=== PATIENT | female | born 1925 | race Caucasian/White ===

== ENCOUNTER 2017-01-12 10:45 | Day surgery (SDC) | payer MEDICARE ==
--- NOTE | 2017-01-11 11:59 | PCM.ANEPRE ---
Anesthesia Pre-Op Review Reason for Review: extensive cardiac history Anesthesia Recommendations: Proceed with Procedure Additional Comments 89 yo female with history of TAVR in 2015, a pacemaker for tachybrady sydrome following TAVR. Appears optimized per chart review. Last cardiology visit . Will need clarification of pacemaker settings and if it is only pacer or defibrillator as well. Final decision by anesthesiologist day of surgery. Chart Reviewed by: China Miller DO January 11, 2017 11:59
[~2017-01-12] VITALS: Ht 152.4 cm; Wt 59.6 kg
[~2017-01-12 10:45] MED LIST: AMLO5TAB2 PO; ASPI-973 PO; CARV3.122 PO; CHOL100045 PO; GLIP10TA10 PO; LIP40 PO; LISI-571 PO; METF850T2 PO
[2017-01-12] MEDS ORDERED: fentaNYL-PF 50 mCg/mL 2 mL Inj ONE (10:46)
[2017-01-12] MEDS ORDERED: Propofol 10,000 mCg/mL 20 mL Inj ONE (10:46)
[2017-01-12 11:14] VITALS: BP 147/69; PULSE 62; RESP 16; O2SAT 100
[2017-01-12] MEDS: Lactated Ringer's 1,000 ML IV SCH ×2 (11:16→11:54)
--- NOTE | 2017-01-12 11:17 | PCM.HPANE ---
Patient Data Date of Service: January 12, 2017 Surgeon Admitting Provider: Attending Provider:Mikel Valencia MD Primary Care Physician:Mac Zavala MD Other Provider:Vince Benoit Anesthesia Reason for Visit Left Temporal Pain Ht/WT & BMI Height (Feet): 5 Height (Inches): 0 Weight (Kilograms): 60.78 Body Mass Index 26.00 Allergies Coded Allergies: Sulfa (Sulfonamide Antibiotics) (Verified Allergy, Mild, upset stomach, ) Uncoded Allergies: No Known Allergies (Allergy, Unknown, 04/10/05) Past Anesthesia History Anesthesia History: Denies:: Anesthesia Reactions Diabetes History Hx Diabetes?: Yes Type of Diabetes: Type II Glycemic Control: Oral Medication MRSA MRSA: No Medications Hypertension Medication: Yes Home Meds Incl Beta Renita: Yes Date Beta Renita Taken: January 12, 2017 Time Beta Renita Taken: 06:00 Reported Medications Carvedilol 3.125 Mg Tablet3.125 Mg PO BID Ref 0 03/05/16 Amlodipine 5 Mg Tablet5 Mg PO DAILY Ref 0 03/05/16 Lisinopril 5 Mg Tablet5 Mg PO DAILY #30 TABLET Ref 0 03/05/16 Atorvastatin (Lipitor)40 Mg [id number] Mg PO DAILY Ref 0 03/05/16 Glipizide 10 Mg Tablet5 Mg PO BID 30 Days 08/06/15 Aspirin 81 Mg [id number] Mg PO DAILY Ref 0 08/06/15 Cholecalciferol (Vitamin D3) (Vitamin D)1,000 Unit Capsule1,000 Unit PO DAILY # 1 BOTTLE Ref 0 08/06/15 Metformin 850 Mg [id number] Mg PO TIDAC Ref 0 08/06/15 History History of ENT Problems?: Yes HEENT History: Positive for:: Cataracts (bilateral, removed) Hearing Problem Denies:: Dysphagia Sinus Problem Denture Type: None Teeth Condition: Within Normal Limits Hx of Heart Problems?: Yes Cardiovascular History: Positive for:: Congestive Heart Failure Edema (lower legs) Hypertension Irregular Heartbeat (tachy nas syndrom) Pacemaker Peripheral Vascular Valvular Heart Disease (aortic stenosis, mitral regurg) Denies:: Cardiac Surgery Chest Pain Heart Murmur Thrombophlebitis Hx of Respiratory Problem?: No Respiratory History: Denies:: Asthma Tuberculosis Hx Neurologic Problems?: Yes Neurological History: Positive for:: CVA Other Neurological Pertinent: periphereal neuropathy Hx of GI Problems?: Yes Hx of Problems?: Yes Genitourinary History: Positive for:: Urinary Tract Infection Female Hx: Positive for:: Problems with Breasts? (double mastectomy, right breast ca.) Denies:: Currently Endometriosis Pelvic Inflammatory Skin History: Positive for:: History Skin Disorders? (hx of skin lesion on back, & squamous cell ca) Denies:: Pressure Ulcers Hx Musculoskeletal Problems?: No Musculoskeletal History: Positive for:: Osteoarthritis Rheumatoid Arthritis Hx of Psycho/Social Problems?: No Hx Surgeries?: Yes (hysterectomy, colon removed, juan and appy, double mastectomy) Hx Any Other Health Problems?: Yes Other History: Positive for:: Cancer (right breast cancer, removed when 42) Denies:: Hospitalization Thyroid Disease History Blood Transfusions: Denies:: Blood Transfuse Reaction Blood Transfusions Hx Diabetes: Yes Hx Alcohol Use: NoHx Substance Use: No Smoking Status: Never Smoker Have You Smoked inLast 12 mo: No Stop/Bang S-Snoring: Do You Snore Loudly: No T-Tired: feel tired, fatigued: Yes O-Obsered: Observed not breath: No P-Blood Pressure: treated: Yes B- Body Mass Index > 35 kg/m2: No A- Age over 50: Yes N- Neck Large Circumference: No G- Gender Male: No HUE Total Score: 3 Risk Assessment Category Category 1A: Patient has history of documented sleep apnea, and HAS NOT received any narcotic, sedative or anesthesia administration during this stay. Category 1B: Patient has history of documented sleep apnea, and HAS received any narcotic , sedative or anesthesia administration during this stay Category 2: Patient has SUSPECTED Obstructive Sleep Apnea, and HAS received any narcotic , sedative or anesthesia administration during this stay. Category 3: Patient has SUSPECTED Obstructive Sleep Apnea and HAS NOT received narcotic, sedative or anesthesia administration during this stay. Category 4: Outpatient in Procedural Areas with known sleep apnea or who screen positive for High Risk via the STOP/BANG questionnaire. Exam Exam Vital Signs Vital Signs Date Time Temp Pulse Resp B/P Pulse Ox O2 Delivery O2 Flow Rate FiO2 01/12/17 11:14 35.9 62 16 147/69 100 Room Air General Appearance: Alert, Oriented X3 HEENT/AIRWAY: MP 2 Lungs: Clear to Auscultation Heart: Regular Rate/Rhythm Plan Impression Patient chart reviewed, patient interviewed and anesthestic plan with risks, benefits, and alternatives discussed, and informed consent obtained. ASA Physical Status: ASA3 Severe Disease Anesthetic Plan: MAC Bene/Risks/Altern/Consents: Yes HP Complete Prior to Induction: Yes Cesar Ag MD January 12, 2017 11:17
[2017-01-12] MEDS ORDERED: Bupivacaine 0.5% 50 mL Inj INFILTRATE ONE (11:51)
[2017-01-12] MEDS ORDERED: Lactated Ringer's 1,000 ML IV SCH (12:09)
[2017-01-12] MEDS ORDERED: Lactated Ringer's 500 ML IV PRN (12:09)
[2017-01-12] MEDS ORDERED: Dexamethasone 4 mg/mL Inj IVPUSH PRN (12:10)
[2017-01-12] MEDS ORDERED: HYDROmorphone 1 mg/mL Inj IVPUSH PRN (12:10)
[2017-01-12] MEDS ORDERED: Labetalol 5 mg/mL 4 mL Inj IV PRN (12:10)
[2017-01-12] MEDS ORDERED: MetoCLOpramide 5 mg/mL 2 mL Inj IVPUSH PRN ×2 (12:10→12:40)
[2017-01-12] MEDS ORDERED: fentaNYL-PF 50 mCg/mL 2 mL Inj IVPUSH PRN (12:10)
[2017-01-12] MEDS ORDERED: Phenylephrine 10,000 mCg/mL Inj IVPUSH PRN (12:10)
[2017-01-12] MEDS ORDERED: EPHEDrine Sulfate 50 mg/mL Inj IVPUSH PRN (12:10)
[2017-01-12] MEDS ORDERED: Ondansetron 2 mg/mL 2 mL Inj IVPUSH PRN ×2 (12:10→12:40)
[2017-01-12 12:40] VITALS: BP 135/70; PULSE 60; RESP 18; O2SAT 100
[2017-01-12] MEDS ORDERED: HYDROcodone-APAP 5-325 mg Tablet PO PRN (12:40)
--- NOTE | 2017-01-12 13:00 | PCM.ANEP1 ---
Post Anesthesia PACU Phase 1 Assessment Date of Service: January 12, 2017 Vital Signs Vital Signs Date Time Temp Pulse Resp B/P Pulse Ox O2 Delivery O2 Flow Rate FiO2 01/12/17 12:40 36.3 60 18 135/70 100 Room Air 01/12/17 11:14 35.9 62 16 147/69 100 Room Air Anesthetic Administered: MAC Level of Alertness: Awake, talking RIOS's with Equal Strength: Yes Pain: No Nausea or Vomiting: No CV Function & Hydration Stable: Yes Airway Device: Oxygen Delivery: Room Air Lungs: Clear to Auscultation PACU Phase 2 Assessment Complications: No Patient Instructions Provided: N/A Cesar Ag MD January 12, 2017 13:00
--- NOTE | 2017-01-12 13:06 | OP ---
[address] [address] OPERATIVE REPORT PATIENT: NICK ALANIZ : 1925 MR#: [id number] ADMIT: 01/12/2017 JOB ID: [id number] DATE OF SURGERY: 01/12/2017 PREOPERATIVE DIAGNOSIS(ES): Rule out temporal arteritis. POSTOPERATIVE DIAGNOSIS(ES): Rule out temporal arteritis. PROCEDURE: Left temporal artery biopsy. POSTOPERATIVE DIAGNOSIS(ES): SURGEON: Dr. Mikel Valencia INDICATIONS: An 89-year-old female referred to the Surgery Service for temporal artery biopsy. She is brought to the operating room after informed consent. FINDINGS: 4 cm of left temporal artery removed and sent to Pathology. There were no complications. PROCEDURE: The patient brought to the operating room. SCOAP protocol was followed. Surgical time-out was performed after her left mandaen was shaved and prepped and draped in a sterile fashion. She received no perioperative antibiotics. After completing the time-out, I instilled local anesthetic without epinephrine. I made an incision over the palpable course of the temporal artery and carried this down through the fascia and exposed a 4 cm section of the temporal artery. I clamped this proximally, divided the temporal artery. I then dissected it out of its bed up to the 4 cm nathen and then placed a flap distally. The artery was both retracted upward and downward to get a 4 cm section from a 3 cm incision. The specimen was sent off to Pathology. This was clearly temporal artery as it was distally pulsatile and had back bleeding after its division. The two ends of the were secured with a silk stick tie followed by irrigation of the wound and closure in layers with absorbable suture. The patient tolerated the procedure well and will go home later today from Day Surgery.
--- NOTE | 2017-01-17 12:19 | PATH ---
SURGICAL PATHOLOGY Attending Physician:Mikel Valencia MD CASE STATUS: Signed Out PATIENT NAME: NICK ALANIZ PID: [id number] : 1925 DATE COLLECTED:01/12/2017 21:56 SPECIMEN: Artery, Biopsy CLINICAL HISTORY: LEFT TEMPORAL PAIN 1). LEFT TEMPORAL ARTERY FINAL DIAGNOSIS: 1.LEFT TEMPORAL ARTERY: NEGATIVE FOR TEMPORAL ARTERITIS. AN ELASTIN STAIN IS NEGATIVE FOR DESTRUCTION OF THE INTERNAL ELASTIC LAMINA. ICD10 R51 GROSS DESCRIPTION: The specimen is received in one formalin filled container labeled with the patient's name, sublabeled "left temporal artery" and consists of a pink-otoole to red-otoole roughly cylindrical-shaped portion of tissue which measures 2.5 x 0.7 x 0.3 CM. The specimen is inked blue and entirely submitted in one cassette to be possibly further sectioned at the time of embedding. 01/12/2017 DAC MICRO DESCRIPTION: See diagnosis. ICD-9 CODES: CPT CODES: 1: 73499, 53387 Electronically Signed Out Fabian Santiago MD [facility] [address], [place] [address] Technical component performed at [facility], [facility] [address], [place], [address]
== END 2017-01-12 23:59 | disposition home or self-care (01) ==
LOC: SAS 10:45
PROVIDERS: ATTEND Surgery
DX: R51 Headache (principal); I25.10 Atherosclerotic heart disease of native coronary artery without angina pectoris; I10 Essential (primary) hypertension; I73.9 Peripheral vascular disease, unspecified; I35.0 Nonrheumatic aortic (valve) stenosis; I49.5 Sick sinus syndrome; E11.9 Type 2 diabetes mellitus without complications; E78.5 Hyperlipidemia, unspecified; Z79.4 Long term (current) use of insulin; Z85.3 Personal history of malignant neoplasm of breast; Z85.828 Personal history of other malignant neoplasm of skin; Z79.82 Long term (current) use of aspirin; Z79.84 Long term (current) use of oral hypoglycemic drugs; Z86.73 Personal history of transient ischemic attack (TIA), and cerebral infarction without residual deficits; Z95.0 Presence of cardiac pacemaker; Z95.3 Presence of xenogenic heart valve; Z90.710 Acquired absence of both cervix and uterus
CPT/HCPCS: 37609; J3010; J7120